=== PATIENT | male | born 1975 | race Caucasian/White ===

== ENCOUNTER 2023-09-17 09:08 | Outpatient (CLI) | payer MEDICAID, SELFPAY ==
--- NOTE | 2023-09-17 09:00 | DI.RAD_ITS ---
Exam(s) XR WRIST LT COMP NAVICULAR EXAM: XR WRIST LT COMP NAVICULAR CLINICAL HISTORY: LEFT WRIST PAIN. TECHNIQUE: 2D digital imaging was performed of the left wrist. Three images were obtained. Scaphoi d, PA, oblique and lateral views were obtained. COMPARISON: CR XR WRIST LEFT 3 OR MORE VIEWS from 08/07/2023 FINDINGS: BONES: No acute fracture is present. The lucency seen in the trapezium is not well visualized on the current examination. There is continued concern a CT scan of the wrist should be considered for fur ther evaluation. No bony destructive lesion is seen. The tiny density anterior to the pisiform on th e lateral view is again seen and is likely old. JOINTS: The carpal bones are normally aligned. Degenerative changes are seen in the distal radial uln ar joint. SOFT TISSUE: Normal. IMPRESSION: The previously described lucency suggested in the trapezium bone is not appreciated on the current vi ew. A CT scan of the wrist should be considered for further evaluation. DATA REPOSITORY: RADIATION DOSE DELIVERED:
== END 2023-09-17 09:09 | disposition home or self-care (01) ==
LOC: DIORS 09:09
PROVIDERS: PCP Nurse Practitioner Adult Health; Referring Provider Nurse Practitioner Adult Health; Visit Provider Physician Assistant
DX: M25.532 Pain in left wrist (principal)
CPT/HCPCS: 73110

== ENCOUNTER → 2023-09-25 00:49 | Outpatient (CLI) | payer MEDICAID, SELFPAY ==
--- NOTE | 2023-09-25 08:30 | DI.CT_ITS ---
Exam(s) CT UPPER EXTREMITY LT WO EXAM: CT UPPER EXTREMITY LT WO CLINICAL HISTORY: PAIN S62.172A FX TRAPEZIUM LEFT WRIST TECHNIQUE: Imaging Protocol: Axial computed tomography images with coronal and sagittal reformatted images were created and reviewed. CONTRAST MATERIAL: Intravenous: Omnipaque 350 Contrast volume:structured data in ml Contrast route:I V - COMPARISON: CR XR WRIST LEFT 3 OR MORE VIEWS from 08/07/2023 CR XR WRIST LT COMP NAVICULAR from 09/17/2023 FINDINGS: Bones: small fracture fragments are seen at the volar, proximal ulnar aspect of the trapezium. Bony alignment is satisfactory. No cellulitic or osteomyelitic changes are identified. There is no evidence of joint space narrowing or cystic degeneration seen. No lytic or sclerotic lesions are identified. The tendons appear grossly intact. Soft Tissues: Normal. IMPRESSION: Fracture at the inferior volar margin of the trapezium. RADIATION DOSE DELIVERED: Total DLP DATA REPOSITORY: All CT scans at this facility are submitted to the National Radiology Data Registry (NRDR) Dose Index Registry (DIR) with the [employer] ([employer]). RADIATION OPTIMIZATION: All CT scans at this facility use at least one of these dose optimization te chniques: automated exposure control; mA and/or kV adjustment per patient size (includes targeted exa ms where dose is matched to clinical indication); or iterative reconstruction.
== END ==
PROVIDERS: PCP Nurse Practitioner Adult Health; Visit Provider Student in an Organized Health Care Education/Training Program
DX: S62.172A Displaced fracture of trapezium [larger multangular], left wrist, initial encounter for closed fracture (principal); X58.XXXA Exposure to other specified factors, initial encounter
CPT/HCPCS: 73200

== ENCOUNTER 2023-10-19 13:46 | Outpatient (CLI) | payer MEDICAID, SELFPAY ==
--- NOTE | 2023-10-19 08:45 | DI.RAD_ITS ---
Exam(s) XR KNEE LT 4V AP,LAT,YNES,PAT XR KNEE RT 4V AP,LAT,YNES,PAT EXAM: XR KNEE RT 4V AP,LAT,YNES,PAT CLINICAL HISTORY: eval R knee pain. TECHNIQUE: 2D digital imaging was performed. Three views of both knees. COMPARISON: CR XR KNEE LT 4V AP,LAT,YNES,PAT from 10/19/2023 FINDINGS: BONES: No acute fracture is present. No bony destructive lesion is seen. JOINTS: The knee is normally aligned. No joint effusion is seen. Joint spaces are maintained. SOFT TISSUE: Normal. IMPRESSION: Unremarkable radiographs of both knees. DATA REPOSITORY: RADIATION DOSE DELIVERED:
== END 2023-10-19 13:47 | disposition home or self-care (01) ==
LOC: DIORS 13:46
PROVIDERS: PCP Nurse Practitioner Adult Health; Visit Provider Student in an Organized Health Care Education/Training Program
DX: M25.561 Pain in right knee (principal); M25.562 Pain in left knee
CPT/HCPCS: 73564

== ENCOUNTER 2023-10-26 10:12 | Outpatient (REF) | payer MEDICAID, SELFPAY | END 2023-10-26 10:13 | disposition home or self-care (01) | LOC: LBN 10:12 | PROVIDERS: PCP Nurse Practitioner Adult Health; Visit Provider Nurse Practitioner Family | DX: L98.9 Disorder of the skin and subcutaneous tissue, unspecified (principal) | CPT/HCPCS: 87070; 87205 ==

== ENCOUNTER 2024-02-18 12:04 | Emergency (ER) | payer MEDICAID, SELFPAY ==
[2024-02-18 12:06] VITALS: BP 165/83; PULSE 85; RESP 20; TEMP 37.1; O2SAT 100
--- NOTE | 2024-02-18 12:22 | W.ED.GENAD ---
Discharge Plan Disposition Patient Disposition: Home Condition: Stable Discharge Details Clinical Impression: Strain of right calf muscle, Achilles tendon injury Primary Care Provider: Leland Mccord ED Provider: Slick Moreno Home Meds and New Rx's Prescriptions: Continued levothyroxine [Synthroid] 100 mcg tablet 100 mcg PO DAILY clobetasol 0.05 % shampoo 1 applic TOPICAL DAILY PRN Patient Comments: APPLY TOPICALLY TO SCALP ONCE DAILY, LEAVE ON FOR 3-5 MINUTES THEN RINSE OFF Discontinued mupirocin 2 % ointment 1 applic topical TID Qty: 15 0RF Hold Instructions: Pt Stopped/Never Started Rx Instructions: apply twice daily for 7 days Discharge Instructions Additional Instructions: Based on your exam is likely you injured your Achilles tendon Use the crutches to keep weight off the leg. Call orthopedics to arrange for follow-up appointment Keep the leg elevated when sitting or laying down If you feel more ill, have severe worsening pain return to the emergency department Referrals: Edmundo Vicente MD [ [facility] STAFF PHYSICIAN] - [facility] General Mode of arrival: ambulatory. Date/Time Provider Initiated Documentation: 02/18/24 12:05. Limitations to Documentation: no limitations. Information obtained by: patient. History of Present Illness 48 year old M presents to the emergency department with the chief complaint of right lower leg pain, described as moderate, Quality is described as aching, and is localized to the right and lower extremity. Patient reports no radiation. Patient started experiencing this day(s) (1) and it has been constant. No relieving factors improve symptom(s), No exacerbating factors reported . Patient notes no other symptoms.. Patient did receive the following treatments prior to arrival, none Related Data Home Medications Medication Instructions Recorded Confirmed levothyroxine 100 mcg tablet 100 mcg PO DAILY 08/25/23 02/18/24 (Synthroid) clobetasol 0.05 % shampoo 1 applic topical DAILY PRN 02/18/24 02/18/24 Allergies Allergy/AdvReac Type Severity Reaction Status Date / Time No Known Allergies Allergy Verified 02/18/24 12:10 General Stated Complaint: Orthopedic MARIOLA: 3 Review of Systems All systems reviewed & are unremarkable except as noted in HPI and below Constitutional Constitutional: Denies chills, Denies fever(s) and Denies weakness Cardiovascular Cardiovascular: Denies chest pain and Denies dyspnea Respiratory Respiratory: Denies cough and Denies dyspnea Gastrointestinal Gastrointestinal: Denies abdominal pain, Denies nausea and Denies vomiting Musculoskeletal Musculoskeletal: Denies joint swelling Integumentary/Breasts Skin/Breast: Denies rash Neurologic Neurologic: Denies weakness Exam Const General: no acute distress Orientation: alert HENIL Head: normal to inspection Ears: external ears normal General nose exam: external nose normal Mouth: moist mucous membranes Eyes General: appearance normal, both eyes and all related structures Neck Neck: normal visual inspection Resp Effort & Inspection: normal respiratory effort and able to speak in complete sentences Cardio Rate: regular rate Skin General skin exam: no rashes or lesions noted Neuro General: patient alert and patient oriented x3 Extrem General: capillary refill normal and calf tenderness Psych Mental Status: mental status grossly normal Course Vital Signs Vital signs: Vital Signs Temperature 37.1 C 02/18/24 12:06 Pulse 85 02/18/24 12:06 Respiratory Rate 20 02/18/24 12:06 Blood Pressure 165/83 H 02/18/24 12:06 Pulse Oximetry 100 02/18/24 12:06 Temperature 37.1 C 02/18/24 12:06 Temperature Source Tympanic 02/18/24 12:06 Pulse 85 02/18/24 12:06 Respiratory Rate 20 02/18/24 12:06 Respiratory Effort Normal 02/18/24 12:11 Blood Pressure 165/83 H 02/18/24 12:06 Blood Pressure Position Sitting 02/18/24 12:06 Pulse Oximetry 100 02/18/24 12:06 Oxygen Delivery Method Room Air 02/18/24 12:06 Oxygen Flow Rate 0 02/18/24 12:06 Pain Level 8 02/18/24 12:06 Medical Decision Making 48-year-old male comes in with right lower leg pain. He states he was skiing yesterday when he was going down a excellently turned to and went backwards and fell forward. He felt a snap in his right lower leg and had calf tenderness. Denies hitting his head or other pain elsewhere. He has tenderness in the right mid calf and it does appear like it is superior on the leg compared to the left leg. He has no tenderness on the bony portion of the leg, cannot fully plantarflex, no tenderness in the foot, on test of Webb test do not elicit full plantarflexion as compared to the left leg. Suspect Achilles tendon injury will obtain x-rays though doubt fracture. Imaging unremarkable, patient stable, discussed case with orthopedics who we recommended posterior leg splint, crutches, and will follow-up with them. Patient updated questions answered, return precautions given Differential Diagnosis Differential Diagnosis: achilles tendon injury, fracture Imaging Data Radiologic Study: Attestation: I personally reviewed and interpreted this imaging study as follows: Imaging: X-Ray Radiologist's impression: No significant findings on tib-fib x-ray or ankle x-ray Quality:SDOH Health Related Social Needs: No Data to Display PFSH All Active Problems (Updated 02/18/24 @ 13:08 by Slick Moreno MD) Achilles tendon injury (Acute) Strain of right calf muscle (Acute) Patellar tendonitis of both knees (Acute) Fracture of trapezium of left wrist (Acute ~05/2023) Social History Smoking risk assessment performed?: No
[2024-02-18] MEDS: Ibuprofen 600 MG TAB (12:31)
--- NOTE | 2024-02-18 13:48 | DI.RAD_ITS ---
Exam(s) XR TIB/FIB RT EXAM: XR TIB/FIB RT CLINICAL HISTORY: pain s/p fall. TECHNIQUE: 2D digital imaging was performed. Two views. COMPARISON: CR XR ANKLE RT COMPLETE from 02/18/2024 FINDINGS: BONES: No acute fracture is present. No bony destructive lesion is seen. Visualized portion of knee a nd ankle joints are unremarkable. SOFT TISSUE: Normal. IMPRESSION: Unremarkable radiographs of the right tibia and fibula. DATA REPOSITORY: RADIATION DOSE DELIVERED:
--- NOTE | 2024-02-18 13:48 | DI.RAD_ITS ---
Exam(s) XR ANKLE RT COMPLETE EXAM: XR ANKLE RT COMPLETE CLINICAL HISTORY: pain s/p fall. TECHNIQUE: 2D digital imaging was performed. Three views. COMPARISON: No exams were available for comparison FINDINGS: BONES: No acute fracture is present. No bony destructive lesion is seen. JOINTS: The ankle mortise is normally aligned. Joint space is maintained. Mild spurring at the tip o f the medial malleolus. Small heel spurs. Spurring at dorsal aspect of the navicular. SOFT TISSUE: Normal. IMPRESSION: No acute abnormality. DATA REPOSITORY: RADIATION DOSE DELIVERED:
--- NOTE | 2024-02-18 14:12 | NUR.NOTE ---
[facility] called with appt: February 24 @ 10:45. Nursing Note:
== END 2024-02-18 14:24 | disposition home or self-care (01) ==
PROVIDERS: Emergency Provider Emergency Medicine; PCP Nurse Practitioner Adult Health
DX: M79.661 Pain in right lower leg (principal); S86.911A Strain of unspecified muscle(s) and tendon(s) at lower leg level, right leg, initial encounter; W00.0XXA Fall on same level due to ice and snow, initial encounter; Y93.23 Activity, snow (alpine) (downhill) skiing, snowboarding, sledding, tobogganing and snow tubing; Y92.838 Other recreation area as the place of occurrence of the external cause
CPT/HCPCS: 99283; 73590; 73610

== ENCOUNTER → 2024-02-25 15:02 | Outpatient (CLI) | payer MEDICAID, SELFPAY ==
--- NOTE | 2024-02-25 11:45 | DI.MRI_ITS ---
Exam(s) MR LOWER JOINT RT WO EXAM: MR LOWER JOINT RT WO CLINICAL HISTORY: R ACHILLES RUPTURE, S86.009A, injury TECHNIQUE: Multiplanar multisequence MRI was performed without intravenous contrast. COMPARISON: No exams were available for comparison FINDINGS: BONES/JOINTS: No fracture or contusion pattern. No bone lesions identified. The talar dome is smooth. The ankle mortise is maintained. No joint effusion is present. LIGAMENTS: The tibiofibular and calcaneofibular ligaments are intact. The talofibular ligaments are i ntact. The deltoid ligament is intact. The syndesmosis is unremarkable. Sinus tarsi is normal. MUSCULOTENDINOUS STRUCTURES: Achilles tendon: There is mild increased signal seen in the Achilles tendon at its insertion site. T here is a small amount of fluid seen both anteriorly and posterior to the Achilles in this region. T his may represent a mild Kellen's deformity. Please correlate clinically. Plantar fascia: There is focal thickening of the plantar fascia near the insertion site. There is mi ld increased signal of the plantar fascia at the insertion site. Plantar fasciitis should be conside red. Anterior Extensor tendons: Unremarkable. Posterior Tibialis: Unremarkable. Flexor Digitorum longus: Unremarkable. Flexor Hallucis longus: Unremarkable. Peroneus longus: Unremarkable. Peroneus brevis:Unremarkable. SOFT TISSUES: There is edema seen in the medial gastrocnemius muscle particularly inferiorly towards the musculotendinous junction. There is fluid seen between the medial gastric knee medius and the so leus muscle. There is irregularity along the anterior aspect of the medial gastrocnemius more inferi rajinder suspicious for musculotendinous tear. There is heterogeneity seen in the lateral aspect of the gastrocnemius consistent with an intramuscular tear (series [id number], images 20-28). There is edema in the subcutaneous tissues in the posterior medial calf. OTHER FINDINGS: None. IMPRESSION: 1. Findings consistent with a muscular tendinous tear of the gastrocnemius muscle distally near the j unction. There is involvement of the substance of the medial gastrocnemius muscle. 2. No evidence of a Achilles tendon tear. DATA REPOSITORY:
== END ==
PROVIDERS: PCP Nurse Practitioner Adult Health; Visit Provider Student in an Organized Health Care Education/Training Program
DX: S86.001A Unspecified injury of right Achilles tendon, initial encounter (principal)
CPT/HCPCS: 73721

== ENCOUNTER → 2024-05-31 02:25 | Outpatient (CLI) | payer MEDICAID, SELFPAY ==
--- NOTE | 2024-05-31 07:00 | DI.US_ITS ---
Exam(s) US SOFT TISSUE HEAD OR NECK EXAM: US SOFT TISSUE HEAD OR NECK CLINICAL HISTORY: evaluate pathology,LYMPHADENOPATHY,R59.1. TECHNIQUE: Sonographic assessment utilizing grayscale and color Doppler imaging was performed and targeted to th e area of clinical concern. COMPARISON: No exams were available for comparison FINDINGS: There are few bilateral small benign-appearing posterior lymph nodes in the neck. The apparently pal pable finding on the right side corresponds to a benign-appearing lymph node measuring 1 x 0.5 x 1.1 cm. There are also a few other benign-appearing right-sided lymph nodes. There are also similar posterio r left-sided lymph nodes noted. The largest on the left measures 1.5 x 0.5 x 1.0 cm. No abnormal fluid collections. IMPRESSION: Minimally prominent bilateral posterior lymph nodes in the neck, 1 of which corresponds to the patien t's palpable finding. These lymph nodes have benign ultrasound appearance. DATA REPOSITORY:
== END ==
PROVIDERS: PCP Nurse Practitioner Adult Health; Visit Provider Nurse Practitioner Family
DX: R59.1 Generalized enlarged lymph nodes (principal)
CPT/HCPCS: 76536

== ENCOUNTER 2025-09-20 14:43 | Outpatient (CLI) | payer MEDICAID, SELFPAY ==
--- NOTE | 2025-09-20 14:00 | DI.RAD_ITS ---
Exam(s) XR SHOULDER LT COMPLETE 2+V EXAM: XR SHOULDER LT COMPLETE 2+V CLINICAL HISTORY: LEFT SHOULDER PAIN. TECHNIQUE: 2D digital imaging was performed. Two views. COMPARISON: No exams were available for comparison FINDINGS: BONES: No acute fracture is present. No bony destructive lesion is seen. JOINTS: No dislocation present. Minimal spurring at the AC joint and undersurface of the acromion. There is mild spurring at the inferior glenoid and probable posterior subchondral cyst seen on the axillary view, not well profiled on the AP view. SOFT TISSUE: Normal. IMPRESSION: Mild degenerative changes. Deformity of the posterior inferior glenoid could be degenerative or posttraumatic. Findings do not appear acute. DATA REPOSITORY: RADIATION DOSE DELIVERED:
== END 2025-09-20 14:44 | disposition home or self-care (01) ==
LOC: DIORS 14:44
PROVIDERS: PCP Nurse Practitioner Adult Health; Visit Provider Student in an Organized Health Care Education/Training Program
DX: M25.512 Pain in left shoulder (principal); M19.012 Primary osteoarthritis, left shoulder
CPT/HCPCS: 73030